=== PATIENT | female | born 1980 | race Caucasian/White ===

== ENCOUNTER → 2018-01-19 12:38 | Outpatient (CLI) | payer OTHER, SELFPAY ==
[2018-01-22 12:14] LABS: HPV Reflexed? NOT INDICATED
== END ==
PROVIDERS: Visit Provider Obstetrics & Gynecology
DX: Z12.4 Encounter for screening for malignant neoplasm of cervix (principal)
CPT/HCPCS: 88175; G0145

== ENCOUNTER → 2020-02-28 | Outpatient (CLI) | payer OTHER, SELFPAY ==
[2020-03-05 20:07] LABS: HPV Reflexed? NOT INDICATED
== END | disposition home or self-care (01) ==
LOC: LABSPEC 02-29 14:24
PROVIDERS: Visit Provider Obstetrics & Gynecology
DX: Z12.4 Encounter for screening for malignant neoplasm of cervix (principal)
CPT/HCPCS: 88175; G0145

== ENCOUNTER 2022-02-11 18:10 | Emergency (ER) | payer OTHER, SELFPAY ==
[2022-02-11 18:10] VITALS: BP 149/92; PULSE 103; RESP 18; TEMP 36.1; O2SAT 97; BMI 25.0
--- NOTE | 2022-02-11 18:13 | NURSING ---
NO OLD EKGS
[2022-02-11 18:16] VITALS: BP 152/92; PULSE 99; RESP 15; O2SAT 98
--- NOTE | 2022-02-11 18:30 | EKG12_ITS ---
Test Reason : CP Blood Pressure : / mmHG Vent. Rate : 094 BPM Atrial Rate : 094 BPM P-R Int : 128 ms QRS Dur : 074 ms QT Int : 346 ms P-R-T Axes : 077 -09 046 degrees QTc Int : 432 ms Normal sinus rhythm Septal infarct , age undetermined Abnormal ECG Confirmed by MARILIA GONZALEZ, BATOOL ([id number]), editorial specialist JA DELUNA ([id number]) on 02/12/2022 9:04:07 AM Referred By: ANUSHA Confirmed By:BATOOL CAPELLAN MD
--- NOTE | 2022-02-11 18:31 | EDS_ITS ---
HPI History of Present Illness Chief Complaint: Chest Pain Detail of Chief Complaint: Chest pain and palpitations and dizziness Informant: patient Narrative Narrative: Patient presents to the emergency department complaint of some chest discomfort and dizziness that started around noon. Patient states that she was at work sitting at her desk when she had a odd sensation in her head. She did not started having some chest discomfort and pressure. She will have intermittent episodes of lightheadedness that lasts a few seconds and then resolves. Patient has never had symptoms like this before. Patient had an illness about 2 weeks ago where she had a cough and a sore throat and tested negative for COVID. Patient denies recent travel or surgery. No history of PE. She has history of low platelets. Prior Similar Symptoms: No PFSH PFSH Allergy/AdvReac Type Severity Reaction Status Date / Time No Known Allergies Allergy Verified 02/11/22 18:10 Surgical History (Updated 02/11/22 @ 18:17 by Olvin Ramos) History of Social History Smoking Status: Never smoker ROS ROS ED Review of Systems ROS Unobtainable: other Constitutional Constitutional ED: Reports lethargy; Denies chills, fever(s), sweats or weight loss Eyes Eyes: Denies blurry vision, change in vision or diplopia ENT ENT ED: Denies rhinorrhea or sore throat Cardiovascular Cardiovascular: Reports chest pain, palpitations and racing heartbeat; Denies orthopnea Respiratory/Chest Respiratory/Chest: Reports dyspnea and dyspnea on exertion; Denies cough, orthopnea or sputum Gastrointestinal Gastrointestinal: Denies abdominal pain, diarrhea, nausea or vomiting Genitourinary Genitourinary ED: Denies dysuria, hematuria or urinary frequency Musculoskeletal Musculoskeletal: Denies arthralgias, back pain, myalgias or neck pain Integumentary Denies abscess, Abrasions or rash Neurologic Neurologic: Reports other Details: Lightheadedness ; Denies headache(s) or weakness Psychiatric Psychiatric: Denies anxiety, depression or suicidal thoughts Endocrine Endocrinology: Denies polydipsia, polyphagia or polyuria Hematologic/Lymphatic Hematologic/Lymphatic: Denies easy bleeding, easy bruising or lymphadenopathy Allergic/Immunologic Allergic/Immunologic ED: Denies mouth swelling, tongue swelling or urticaria EXAM Physical Exam Const Vital Signs: 02/11/22 18:10 02/11/22 18:16 02/11/22 18:47 Temperature 97 F L Temperature Source Temporal Pulse Rate 103 H 99 Respiratory Rate 18 15 Respiratory Effort Normal Blood Pressure 149/92 H 152/92 H Blood Pressure Mean 111 112 Pulse Ox 97 98 Oxygen Delivery Method Room Air Room Air Room Air Positive well nourished and well developed General Appearance ED: well developed and NAD HEENT Reports TM's clear and moist mucous membranes normocephalic and atraumatic; Negative for trauma or tenderness Tympanic Membrane ED: Yes TM's clear Eyes PERRL and EOMs intact bilaterally General Eye ED: Negative for pale conjunctiva or scleral icterus Neck no lymphadenopathy, supple and no JVD General: Negative for tenderness Chest Wall inspection of chest normal and palpation of chest normal Chest: Negative for tenderness Resp normal respiratory effort and clear to auscultation bilaterally Effort and Inspection: Negative for respiratory distress or pain with movement Auscultation: Negative for rhonchi, wheezes or diminished lung sounds Cardio regular rate, regular rhythm, S1 normal heart sound, S2 normal heart sound and no murmurs Peripheral Pulses: pulses 2+ throughout GI normal to inspection, nondistended, normoactive bowel sounds, soft to palpation, non-tender, non-distended and no masses Back/Spine no CVA tenderness and no thoracic nor lumbar tenderness Extremity normal to inspection General Extremety ED: Negative for edema General Extremity: Negative for edema Neuro oriented x3, CN's II-XII intact bilaterally, no sensory deficits noted and gait normal Sensorium / Orientation: awake, alert, oriented to person, oriented to place and oriented to time Motor Exam: strength 5/5 throughout and strength abnormal Psych mental status grossly normal Skin no rashes or lesions noted and no wounds Heart Score History: Slightly/Non-Suspicious ECG: Nonspecific Repolarization Age: </= 45 years Risk Factors: No Risk Factors Troponin: </= Normal Limit Score: 1 MDM MDM MDM Narrative Medical decision making narrative: IV line established on arrival. Patient placed on a equipment monitor phototypesetting. Patient was not given aspirin as my suspicion for cardiac disease was low when she has history of low platelets and was told by her oncologist not to take aspirin. Patient lab work was unremarkable. Chest x-ray was unremarkable. This point etiology of symptoms unclear but she is low risk for coronary artery disease. Patient advised to follow-up with primary care physician 3 to 5 days. She is to return if worsening pain, increasing shortness of breath, or condition should worsen anyway. Lab Data Attestation: I reviewed the patient's lab results. Labs: Laboratory Results - last 24 hr 02/11/22 02/11/22 02/11/22 18:20 18:20 18:20 WBC 9.3 RBC 4.40 Hgb 14.0 Hct 41.7 MCV 94.8 MCH 31.8 MCHC 33.6 RDW Std Deviation 41.5 RDW Coeff of [place] 11.9 Plt Count 54 L MPV 11.9 Immature Gran % (Auto) 0.400 Neut % (Auto) 56.5 Lymph % (Auto) 27.9 [place] % (Auto) 11.3 H Eos % (Auto) 2.8 Baso % (Auto) 1.1 H Absolute Neuts (auto) 5.3 Absolute Lymphs (auto) 2.59 Nucleated RBC % 0 D-Dimer Quant (PE/DVT) 0.27 Sodium 138 Potassium 3.9 Chloride 106 Carbon Dioxide 25.0 Anion Gap 7 BUN 16 Creatinine 0.83 Estim Creat Clear Calc 83.50 Est GFR (MDRD) Af Amer 97 Est GFR (MDRD) Non-Af 80 BUN/Creatinine Ratio 19.2 Glucose 92 Calcium 9.5 Troponin I High Sens < 3 L Radiography Chest X-Ray - ED: 1 View Diagnostic Testin view chest x-ray obtained interpreted by myself no acute disease process. No evidence of pneumothorax or infiltrate. Official report from radiology pending. EKG Initial EKG: Attestation: I personally reviewed and interpreted this EKG as follows: Comments: Sinus rhythm with a ventricular rate of 94 bpm with old septal infarct noted. Discharge Plan Triage Chief Complaint: Chest Pain ED Provider: Jacek Kee Dx/Rx/DC Orders Clinical Impression: Chest pain, Lightheadedness Instructions: ED Chest Pain, Uncertain Cause, ED Dizziness, Uncertain Cause Primary Care Provider: Care Physician,No Primary Referrals: Meaghan Padilla DO [STAFF PHYSICIAN] - 3-5 Days Care Physician,No Primary [Primary Care Provider] - Disposition Disposition: Home, Self Care
--- NOTE | 2022-02-11 18:43 | RAD_ITS ---
STUDY: X-RAY CHEST REASON FOR EXAM: Female, 41 years old. Chest pain TECHNIQUE: Single AP portable view of the chest. COMPARISON: None. FINDINGS: There are monitoring devices. The lungs are clear and expanded. There is no demonstrated pleural abnormality. Normal size heart. Normal mediastinum and taya. Normal visualized pulmonary arteries. Normal visualized aortic arch and descending thoracic aorta. Normal visualized thoracic spine. Normal visualized ribs, clavicles, and shoulders. There is no demonstrated abnormality of the visualized soft tissue structures of the upper abdomen. RAD/Chest 1 View (Portable) IMPRESSION: Normal x-ray examination of the chest. Electronically Signed: Jimenez Baca MD at 19:28 EDT ,
[2022-02-11 18:58] LABS: Absolute Lymphocyte Count 2.59 X10^3/uL (0.83-4.51); Absolute Neutrophil Count 5.3 X10^3/uL (2.0-7.7); Basophil% 1.1 % (0-1); Eosinophil# 0.26 X10^3/uL; Eosinophils% 2.8 % (0-5); Hematocrit 41.7 % (37-47); Lymphocyte # 2.59 X10^3/ul (0.83-4.51); Lymphocyte % 27.9 % (19-41); Mean Corp Hgb Conc 33.6 g/dL (32-36); Mean Corpuscular Hgb 31.8 pg (27.0-32.0); Mean Corpuscular Volume 94.8 fL (81-99); Mean Platelet Vol. 11.9 fl (6.2-12.0); Monocyte# 1.05 X10^3/uL; Monocyte% 11.3 % (0-10); NRBC Flagged by Analyzer 0 % (0-5); Neutrophil # 5.25 X10^3/uL (2.7-7.7); Neutrophil % 56.5 % (47-70); POSITIVE COUNT YES; Platelet Count 54 K/mm3 (150-450); RBC Distribution Width CV 11.9 % (11.6-14.6); RBC Distribution Width SD 41.5 fl (35.1-43.9); White Blood Count 9.3 K/mm3 (4.4-11.0)
--- NOTE | 2022-02-11 18:59 | CM.ED ---
SW Note Referral Source: Case Find Referral Reason: No PCP SW noted patient had no PCP. SW provided patient with [facility] Directory and encouraged them to follow up for a PCP. No other issues or questions voiced. SW remains available if needs arise. Plan: Resources provided Karli BHAKTA
[2022-02-11 19:00] LABS: Differential Indicated SCAN CRITERIA MET
[2022-02-11 19:02] LABS: D-Dimer Quantitative (DVT/PE) 0.27 FEU/ug/m (0.27-0.49)
[2022-02-11] MEDS: 0.9% Normal Saline 1,000 ML 150 ML IV (19:07)
--- NOTE | 2022-02-11 19:12 | ED.RN ---
PATIENT STATES SHE WAS TOLD BY HER UNIT CONTROLLER NOT TO TAKE ASPIRIN. DR. LEE NOTIFIED AND OKAY WITH HOLDING ASPRIN.
[2022-02-11 19:15] LABS: Anion Gap 7 (5-15); BUN 16 mg/dL (7-18); BUN/Creat Ratio 19.2 RATIO (10-20); Calcium,Total 9.5 mg/dL (8.5-10.1); Chloride 106 mmol/L (98-107); Creatinine, Serum 0.83 mg/dL (0.55-1.02); EST Glomerular Filtration Rate 80 mL/min (>60); Est Glom Filt Rate - Afr Amer 97 mL/min (>60); Glucose 92 mg/dL (74-106); Potassium 3.9 mmol/L (3.5-5.1); Sodium Level 138 mmol/L (136-145); Troponin-I HS (w/2H Reflex) < 3 pg/mL (3.0-54.0)
[2022-02-11 19:46] VITALS: BP 121/92; PULSE 80; RESP 16; O2SAT 100
[2022-02-11 20:19] LABS: Differential Comment SCANNED
[2022-02-11 20:36] LABS: Reflex Troponin-HS? (from REC) Y
== END 2022-02-11 19:51 | disposition home or self-care (01) ==
PROVIDERS: Emergency Provider Emergency Medicine; Visit Provider Emergency Medicine
DX: R07.9 Chest pain, unspecified (principal); R42 Dizziness and giddiness; R00.2 Palpitations; R06.09 Other forms of dyspnea
CPT/HCPCS: 71045; 80048; 84484; 85025; 85379; 93005; 96360; 99285; J7030; A4216